=== PATIENT | female | born 2000 | race Asian ===

== ENCOUNTER → 2018-12-15 | Outpatient (CLI) | payer OTHER | END | disposition home or self-care (01) | LOC: CFH 11:16 | PROVIDERS: ATTEND Pediatrics | DX: N39.0 Urinary tract infection, site not specified (principal) | CPT/HCPCS: 87086 ==

== ENCOUNTER 2021-04-18 12:28 | Emergency (ER) | payer OTHER ==
[~2021-04-18] VITALS: Ht 152.4 cm; Wt 45.1 kg
[2021-04-18] MEDS ORDERED: SODIUM CHLORIDE FLUSH 10ML SYR IVF ONE (13:00)
[2021-04-18] MEDS ORDERED: ONDANSETRON 2MG/ML, 2ML IVPush ONE (13:00)
[2021-04-18] MEDS ORDERED: SODIUM CHLORIDE 0.9% 1,000ML IVBOLUS ONE (13:00)
--- NOTE | 2021-04-18 13:17 | NUR ---
PT AMBULATED TO ROOM FROM TRIAGE. PT CO N/V/D FOR SEVERAL WEEKS. PT WAS SEEN HERE A COUPLE WEEKS AGO AND PROVIDED A STOOL SAMPLE AND STATED THAT THE CONSIDERED DOING AN ABDOMINAL US, NOT IT WAS NOT COMPLETED. PT DENIES ANY FEVER, BLOOD IN STOOL OR VOMIT. PT STATED THAT SHE VOMITED 3 TIMES THIS MORNING.
[2021-04-18] MEDS ORDERED: ONDANSETRON 2MG/ML, 2ML ONE (13:19)
[2021-04-18 13:22] LABS: BASOPHILS % (AUTO) 1 % (0-1); EOSINOPHILS % (AUTO) 2 % (1-7); LYMPHOCYTES % (AUTO) 16 % (22-44); MEAN CORPUSCULAR HEMOGLOBIN 32.9 pg (27.0-34.8); MEAN CORPUSCULAR HGB CONC 34.6 g/dL (32.4-35.8); MONOCYTES % (AUTO) 6 % (2-9); NEUTROPHILS % (AUTO) 76 % (42-75); PLATELET COUNT 287 x10^3/uL (130-400); RED BLOOD COUNT 4.59 x10^6/uL (3.82-5.3); RED CELL DISTRIBUTION WIDTH 13.9 % (9.6-15.2)
[2021-04-18 13:27] LABS: ALANINE AMINOTRANSFERASE 24 U/L (12-78); ALBUMIN 4.1 g/dL (3.4-5.0); ANION GAP 11 mmol/L (5-15); CALCIUM 9.1 mg/dL (8.5-10.1); CHLORIDE 108 mmol/L (98-107); CREATININE 0.72 mg/dL (0.55-1.02)
--- NOTE | 2021-04-18 13:30 | NUR ---
US AT BEDSIDE
[2021-04-18 13:32] LABS: ALKALINE PHOSPHATASE 82 U/L (45-117); BILIRUBIN,TOTAL 0.6 mg/dL (0.2-1.0); TOTAL PROTEIN 8.2 g/dL (6.4-8.2)
--- NOTE | 2021-04-18 13:57 | NUR ---
Shay benson in [facility] - 04/18/21 at [address]3 [address] ROMAINE PT [address] CT
--- NOTE | 2021-04-18 14:15 | NUR ---
PT AMBULATED TO RESTROOM FRO URINE SAMPLE.
[2021-04-18 14:54] LABS: MICROSCOPIC AUTO
[2021-04-18 15:15] VITALS: BP 117/75
--- NOTE | 2021-04-18 15:17 | NUR ---
PT RESTING IN GURNEY COMFORTABLY. CALL LIGHT WITHIN REACH. MOTHER AT BEDSIDE.
[2021-04-18] MEDS ORDERED: MAALOX/HYOSCYAMINE/LIDOCAINE 45 ML BTL ONE (15:50)
[2021-04-18] MEDS ORDERED: MAALOX/HYOSCYAMINE/LIDOCAINE 45 ML BTL PO ONE (16:00)
--- NOTE | 2021-04-18 16:32 | NUR ---
DISCHARGE INSTRUCTIONS REVIEWED WITH PT AND MOTHER. ALL QUESTIONS ANSWERED AT THIS TIME.
== END 2021-04-18 16:35 | disposition home or self-care (01) ==
LOC: ED 15:38
DX: R10.13 Epigastric pain (principal); R11.2 Nausea with vomiting, unspecified; R19.7 Diarrhea, unspecified
CPT/HCPCS: 36415; 76700; 80053; 81001; 83690; 84703; 85025; 96361; 96374; 99284; J2405; J7030